=== PATIENT | female | born 1980 | race Caucasian/White ===

== ENCOUNTER 2016-12-06 14:16 | Inpatient (IN) | payer OTHER ==
--- NOTE | ~2016-12-06 | CT4 ---
[facility] A Service of [facility] RADIOLOGY TEXT RESULTS PATIENT: TARIQ EPPS LOCATION: [facility] : [birth year] UNIT #: [id number] AGE: [address]: Collette De Jesus MD SEX: F ORDER DR: [id number] [facility]. [place], [place] [address] [id number] I MR#: [id number] Acc #: [id number] NAME: TARIQ EPPS : 1980 SEX: F STUDY DATE/TIME: 12/06/2016 19:54 UNIT: A PCU ROOM: [facility] STUDY DESCRIPTION: CT Abd and Pelv Wo Cont Attending Physician: Collette De Jesus M.D. Ordering Physician: Essence Brandt M.D. [facility] REPORT This report is preliminary unless electronic signature is present EXAM CT abdomen and pelvis. INDICATIONS Generalized abdominal pain. Nausea, vomiting and diarrhea for [address] of the abdomen and pelvis without contrast. Coronal and sagittal reconstructions were obtained. This CT exam was performed with one or more of the following radiation dose reduction techniques: automatic exposure control, adjustment of mA and/or kV according to patient size, and iterative reconstruction. COMPARISON CT abdomen and pelvis dated 11/18/2014. FINDINGS Abdomen: The solid abdominal organs are grossly normal on this noncontrasted study. The gallbladder is surgically absent. The bowel is not dilated. The abdominal aorta is normal in caliber. The appendix is normal. Uterus and ovaries are within normal limits. Bladder is decompressed. No enlarged pelvic or inguinal lymph nodes. No acute osseous abnormalities. Patient has had prior fusion of the lower lumbar spine. Prior L4-S1 TLIF. IMPRESSION 1. No acute findings in the abdomen or pelvis. No urinary calculi. Normal appendix. Dictated by... [facility] A Service of [facility] RADIOLOGY TEXT RESULTS PATIENT: TARIQ EPPS LOCATION: [facility] : 80 UNIT #: [id number] AGE: [address]: Collette De Jesus MD SEX: F ORDER DR: Eric Humphrey M.D. THIS IS AN ELECTRONICALLY VERIFIED REPORT Eric Humphrey M.D. at 12/07/2016 10:55 AM ALEAXNDER/shashi TD: 12/07/2016 10:13 JOB #: [id number] MEDICAL IMAGING REPORT Page 1 of 1 COPY
--- NOTE | ~2016-12-06 | US77 ---
[facility] A Service of [facility] RADIOLOGY TEXT RESULTS PATIENT: TARIQ EPPS LOCATION: [facility] 341-01 : [birth year] UNIT #: [id number] AGE: [address]: Collette De Jesus MD SEX: F ORDER DR: [id number] [facility]. [place], [place] [address] [id number] I MR#: [id number] Acc #: [id number] NAME: TARIQ EPPS : 1980 SEX: F STUDY DATE/TIME: 12/06/2016 21:24 UNIT: [address] ROOM: [facility] STUDY DESCRIPTION: US Kidney Bilateral Complete Attending Physician: Collette De Jesus M.D. Ordering Physician: Nate Neri M.D. Primary Care Physician: [facility] MEDICAL IMAGING REPORT This report is preliminary unless electronic signature is present EXAM Renal ultrasound INDICATION Acute renal failure for 1 day. GFR 10.4. COMPARISON CT abdomen and pelvis dated 12/06/2016. FINDINGS The right kidney measures 13 cm. The left kidney measures 11.5 cm. Renal cortical thickness and echogenicity is normal. No hydronephrosis. The bladder is normal in appearance. IMPRESSION Negative renal ultrasound. Dictated by... Eric Humphrey M.D. THIS IS AN ELECTRONICALLY VERIFIED REPORT Eric Humphrey M.D. at 12/07/2016 4:55 PM ALEXANDER/yuriy TD: 12/07/2016 11:09 JOB #: [id number] MEDICAL IMAGING REPORT Page 1 of 1 COPY
--- NOTE | ~2016-12-06 | HP ---
Unit #: [id number] #: [id number] Patient: TARIQ EPPS [id number] [address] [address] [id number] I MR#: [id number] NAME: TARIQ EPPS ROOM: [address] Age: 35 Sex: F Admission Date: 12/06/2016 : 1980 Attending Physician: Essence Brandt M.D. Primary Care Physician: [facility]. HISTORY AND PHYSICAL CHIEF COMPLAINT Vomiting and diarrhea. HISTORY OF PRESENT ILLNESS The patient is a 35-year-old female with a past medical history of chronic back pain and recurrent urinary tract infections who presented to the emergency department for evaluation of the above. The patient states that she has had vomiting and diarrhea for the past four days. She reports more than 10 bouts of nonbloody emesis and more than 10 bouts of nonbloody diarrhea within the past 24 hours. She states that she has had abdominal pain she describes as "cramping." She denies any exacerbating or alleviating factors and no similar pain. She states that her last void was December 03, 2016. She denies any NSAID use. She denies ever being told that she has kidney problems. In the emergency department, initial pulse and blood pressure were 118 and 120/93, respectively. BUN and creatinine were 65 and 5, respectively, potassium 3.5, and sodium 126. She was given two liters of normal saline, as well as 4 mg of Zofran and 4 mg of morphine. She is being admitted to [facility] for evaluation and further treatment. PAST MEDICAL HISTORY 1. Admission to [facility] September 29-2013, for rectus hematoma following laparoscopic cholecystectomy. 2. Chronic pain followed by Dr. Fisher, maintained on narcotics. 3. History of recurrent urinary tract infection. 4. Admission to [facility] in 2016 for vomiting and diarrhea. PAST SURGICAL HISTORY 1. Back surgery. 2. Cholecystectomy. 3. EGD and colonoscopy. SOCIAL HISTORY The patient lives with her . She smokes a pack of cigarettes daily. She denies alcohol or illicit drug use. She is currently applying for disability. FAMILY HISTORY Notable for her mother drowning. Her dad has hypertension. ALLERGIES Penicillin and latex. Unit #: [id number] #: [id number] Patient: TARIQ EPPS HOME MEDICATIONS 1. Gabapentin 400 mg 4 times daily. 2. Oxycodone and acetaminophen 10/325 q.6 hours. REVIEW OF SYSTEMS A complete review of systems is negative except as indicated in the History of Present Illness. PHYSICAL EXAMINATION VITAL SIGNS: Temperature is 98, pulse 118, respirations 16, blood pressure 120/93, and oxygen saturation is 99% on room air. GENERAL: Patient is a female who is awake, alert, and in no acute distress. HEENT: Head is atraumatic. Mucous membranes are dry. NECK: Supple. Trachea is midline. CARDIOVASCULAR: Regular rate and rhythm. LUNGS: Clear to auscultation bilaterally with no increased work of breathing. ABDOMEN: Soft and nontender with bowel sounds present in all four quadrants. EXTREMITIES: Nontender with no pedal edema. NEUROLOGIC: Patient is awake and alert. She follows commands. PSYCHIATRIC: Mood and affect are normal. Patient is cooperative. SKIN: Skin of examined areas is warm and dry. DIAGNOSTIC STUDIES LABORATORY: Comprehensive metabolic panel notable for sodium of 126, chloride 84, glucose 127, BUN and creatinine 65 and 5, respectively, AST and ALT 124 and 98, respectively, alkaline phosphatase 139, total protein 10.5, and albumin is 5.8. Lipase 24. Complete blood count notable for white blood cell count of 27.3 and hemoglobin 18.2. ASSESSMENT The patient is a 35-year-old female with: 1. Acute kidney injury. The patient's creatinine was 0.6 on November 18, 2014. It is 5 today. The patient appears to be hypovolemic. She states that she has not had urine output since the . 2. Hyponatremia. Again, the patient seems to be hypovolemic. Her sodium is 126. It was previously 138. 3. Transaminitis. Liver function tests have previously been normal. 4. Leukocytosis. The patient has had diarrhea. She also has a history of recurrent urinary tract infections. Urinalysis is currently pending. 5. Chronic back pain followed by Dr. Fisher of Pain Management, maintained on narcotics. 6. History of recurrent urinary tract infections. 7. Tobacco abuse. PLAN 1. Admit to intermediate level. 2. Advance to clear liquids as tolerated. 3. Normal saline at 125 mL/hour. 4. Urinalysis with culture and sensitivity. 5. Strict I/Os. 6. Urine sodium, creatinine, and eosinophils. 7. Urine and serum osmolality. 8. CT of the abdomen and pelvis without contrast regarding abdominal Unit #: [id number] #: [id number] Patient: TARIQ EPPS pain. 9. Urine toxicology screen. 10. Check CPK. 11. Blood cultures x2. 12. Levaquin and Flagyl pending further workup. 13. Stool studies including ova and parasites, C. difficile, culture and sensitivity. 14. P.r.n. morphine. 15. P.r.n. Zofran. 16. SCDs for DVT prophylaxis. 17. Repeat labs in the morning. 18. Additional workup and consultants based on above. 1. Dictated by Farida Morales/lion TD: 12/06/2016 20:22 JOB #: [id number] HISTORY AND PHYSICAL Page 1 of 1 X Essence Brandt MD X HISTORY AND PHYSICAL
--- NOTE | ~2016-12-06 | HP ---
Unit #: [id number] #: [id number] Patient: TARIQ EPPS [id number] [address] [address] [id number] I MR#: [id number] NAME: TARIQ EPPS ROOM: 83616 Age: 35 Sex: F Admission Date: 12/06/2016 : 1980 Attending Physician: Essence Brandt M.D. Primary Care Physician: [facility]. HISTORY AND PHYSICAL CHIEF COMPLAINT Vomiting and diarrhea. HISTORY OF PRESENT ILLNESS The patient is a 35-year-old female with a past medical history of chronic back pain and recurrent urinary tract infections who presented to the emergency department for evaluation of the above. The patient states that she has had vomiting and diarrhea for the past four days. She reports more than 10 bouts of nonbloody emesis and more than 10 bouts of nonbloody diarrhea within the past 24 hours. She states that she has had abdominal pain she describes as "cramping." She denies any exacerbating or alleviating factors and no similar pain. She states that her last void was December 03, 2016. She denies any NSAID use. She denies ever being told that she has kidney problems. In the emergency department, initial pulse and blood pressure were 118 and 120/93, respectively. BUN and creatinine were 65 and 5, respectively, potassium 3.5, and sodium 126. She was given two liters of normal saline, as well as 4 mg of Zofran and 4 mg of morphine. She is being admitted to [facility] for evaluation and further treatment. PAST MEDICAL HISTORY 1. Admission to [facility] September 29-2013, for rectus hematoma following laparoscopic cholecystectomy. 2. Chronic pain followed by Dr. Fisher, maintained on narcotics. 3. History of recurrent urinary tract infection. 4. Admission to [facility] in 2016 for vomiting and diarrhea. PAST SURGICAL HISTORY 1. Back surgery. 2. Cholecystectomy. 3. EGD and colonoscopy. SOCIAL HISTORY The patient lives with her . She smokes a pack of cigarettes daily. She denies alcohol or illicit drug use. She is currently applying for disability. FAMILY HISTORY Notable for her mother drowning. Her dad has hypertension. ALLERGIES Penicillin and latex. Unit #: [id number] #: [id number] Patient: TARIQ EPPS HOME MEDICATIONS 1. Gabapentin 400 mg 4 times daily. 2. Oxycodone and acetaminophen 10/325 q.6 hours. REVIEW OF SYSTEMS A complete review of systems is negative except as indicated in the History of Present Illness. PHYSICAL EXAMINATION VITAL SIGNS: Temperature is 98, pulse 118, respirations 16, blood pressure 120/93, and oxygen saturation is 99% on room air. GENERAL: Patient is a female who is awake, alert, and in no acute distress. HEENT: Head is atraumatic. Mucous membranes are dry. NECK: Supple. Trachea is midline. CARDIOVASCULAR: Regular rate and rhythm. LUNGS: Clear to auscultation bilaterally with no increased work of breathing. ABDOMEN: Soft and nontender with bowel sounds present in all four quadrants. EXTREMITIES: Nontender with no pedal edema. NEUROLOGIC: Patient is awake and alert. She follows commands. PSYCHIATRIC: Mood and affect are normal. Patient is cooperative. SKIN: Skin of examined areas is warm and dry. DIAGNOSTIC STUDIES LABORATORY: Comprehensive metabolic panel notable for sodium of 126, chloride 84, glucose 127, BUN and creatinine 65 and 5, respectively, AST and ALT 124 and 98, respectively, alkaline phosphatase 139, total protein 10.5, and albumin is 5.8. Lipase 24. Complete blood count notable for white blood cell count of 27.3 and hemoglobin 18.2. ASSESSMENT The patient is a 35-year-old female with: 1. Acute kidney injury. The patient's creatinine was 0.6 on November 18, 2014. It is 5 today. The patient appears to be hypovolemic. She states that she has not had urine output since the . 2. Hyponatremia. Again, the patient seems to be hypovolemic. Her sodium is 126. It was previously 138. 3. Transaminitis. Liver function tests have previously been normal. 4. Leukocytosis. The patient has had diarrhea. She also has a history of recurrent urinary tract infections. Urinalysis is currently pending. 5. Chronic back pain followed by Dr. Fisher of Pain Management, maintained on narcotics. 6. History of recurrent urinary tract infections. 7. Tobacco abuse. PLAN 1. Admit to intermediate level. 2. Advance to clear liquids as tolerated. 3. Normal saline at 125 mL/hour. 4. Urinalysis with culture and sensitivity. 5. Strict I/Os. 6. Urine sodium, creatinine, and eosinophils. 7. Urine and serum osmolality. 8. CT of the abdomen and pelvis without contrast regarding abdominal pain. 9. Urine toxicology screen. Unit #: [id number] #: [id number] Patient: TARIQ EPPS 10. Check CPK. 11. Blood cultures x2. 12. Levaquin and Flagyl pending further workup. 13. Stool studies including ova and parasites, C. difficile, culture and sensitivity. 14. P.r.n. morphine. 15. P.r.n. Zofran. 16. SCDs for DVT prophylaxis. 17. Repeat labs in the morning. 18. Additional workup and consultants based on above. Dictated by... Essence Brandt M.D. AW/am TD: 12/06/2016 20:22 JOB #: [id number] ADDENDUM PLAN (CONTINUED) 19. Consult Dr. Wise regarding acute kidney injury and hyponatremia. 20. Hold gabapentin. 1. Dictated by Essence Brandt M.D. AW/am TD: 12/06/2016 20:50 JOB #: [id number] CC: Pawel/abdiel Please Delete HISTORY AND PHYSICAL Page 1 of 1 X Essence Brandt MD HISTORY AND PHYSICAL
--- NOTE | ~2016-12-06 | DS ---
Unit #: [id number] #: [id number] Patient: TARIQ MCGOVERN [id number] [address] [address] [id number] I MR#: [id number] NAME: TARIQ MCGOVERN ROOM: 341 Age: 35 Sex: F Admission Date: 12/06/2016 : 1980 Discharge Date: 12/08/2016 Attending Physician: Collette De Jesus M.D. Primary Care Physician: [facility]. DISCHARGE SUMMARY PRINCIPAL DIAGNOSES 1. Sepsis secondary to Gram-negative belkys urinary tract infection. 2. Acute kidney injury, prerenal. Discharge creatinine 0.9. 3. Mild transaminitis, now resolved. 4. Tobaccoism. 5. Chronic pain syndrome. 6. Hypokalemia, resolved. 7. Hypovolemic hyponatremia. CONSULTANTS Dr. Caldwell, nephrology. PROCEDURES 1. CT scan of the abdomen and pelvis without contrast, on 12/06/2016, with no acute findings. 2. Bilateral renal ultrasound on 12/06/2016 was also normal. CLINICAL HISTORY AND HOSPITAL COURSE Ms. Mcgovern is a 35-year-old female with a history of recurrent UTIs who presents to the emergency department vomiting and diarrhea. CT scan was done in the emergency department and was unremarkable. However, lab work in the emergency department revealed a creatinine of 5, some hyponatremia and some hypokalemia. The patient was given IV fluids and subsequently admitted. In regard to patient's acute kidney injury, Dr. Caldwell was consulted. She was maintained on IV fluids and on day of discharge creatinine is normal. In regard to patient's electrolyte abnormalities, her hyponatremia resolved with fluid resuscitation. Her nausea and vomiting is likely either viral induced or plus or minus secondary to her urinary tract infection. This has resolved as well. In regard to patient's other electrolyte abnormalities, these have been replaced and are normal on day of discharge. The patient did undergo a urinalysis and was found to have a Gram-negative belkys urinary tract infection. Official culture results are currently pending but she has been maintained on Rocephin throughout hospitalization with no improvement in her white blood cell count. I will place her on Omnicef and follow up urine culture tomorrow to ensure appropriateness of antibiotic therapy. The patient is otherwise clinically stable and will be discharged home Unit #: [id number] #: [id number] Patient: TARIQ MCGOVERN today. DISCHARGE CONDITION Stable. DISCHARGE STATUS Discharge to home. DISCHARGE MEDICATIONS 1. Omnicef 300 mg p.o. b.i.d. for another 2 days. 2. Gabapentin 400 mg q.i.d. 3. Oxycodone 10/325 one tablet p.o. q.6 h. DISCHARGE INSTRUCTIONS 1. The patient was instructed to follow a regular diet. 2. She can increase her activity as tolerated. 3. We did briefly discuss tobacco cessation. FOLLOWUP The patient will follow up with her primary care provider at [facility] in three weeks. Dictated by... Collette De Jesus M.D. CAMRYN/satya TD: 12/09/2016 16:24 JOB #: [id number] DISCHARGE SUMMARY Page 1 of 1 X Collette De Jesus MD X DISCHARGE SUMMARY
[~2016-12-06 14:16] MED LIST: HYDROCODON-ACE1 EAC7 PO; HYDROCODON-ACE1 EAC9 PO; NAPROSYN500 MG PO; NO MEDICATIONS; PHENERGAN25 M1 PO
[2016-12-06 16:44] LABS: BASOPHIL% 0.1 % (0-2.5); EOSINOPHIL# 0.1 X10e3 (0-0.7); EOSINOPHIL% 0.3 % (0.0-7.0); HEMATOCRIT 53.3 % (35.0-45.0); HEMOGLOBIN 18.2 gm/dL (12.0-16.0); LYMPHOCYTE# 3.5 X10e3 (1.0-3.5); LYMPHOCYTE% 12.7 % (17.0-45.0); MEAN CELL VOLUME 92.5 FL (83-96); MEAN CORPUSCULAR HEMOGLOBIN 31.5 PG (28-34); MEAN CORPUSCULAR HGB CONC 34.1 g/dL (30-36); MEAN PLATELET VOLUME 8.6 FL (6.5-11.5); MONOCYTE# 1.9 X10e3 (0-1.0); MONOCYTE% 6.8 % (3.0-12.0); NEUTROPHIL# 21.9 X10e3 (1.5-7.1); NEUTROPHIL% 80.1 % (40-75); PLATELET COUNT 337 X10e3 (140-420); RED BLOOD COUNT 5.76 X10e (3.90-5.30); RED CELL DISTRIBUTION WIDTH 13.3 % (11.0-15.5); WHITE BLOOD COUNT 27.3 X10e3 (4.0-10.5)
[2016-12-06 16:50] LABS: DIFF IND YES
[2016-12-06 17:07] LABS: ALBUMIN SERUM 5.8 g/dL (3.5-5.0); BILIRUBIN, DIRECT 0.4 mg/dL (0.0-0.2); BILIRUBIN,INDIRECT 0.7 mg/dL (0.0-0.9); BILIRUBIN,TOTAL 1.1 mg/dL (0.2-2.0); CALCIUM SERUM 9.1 mg/dL (8.4-10.2); GLOM FILT RATE Estimated 10.4 mL/min (>60); POTASSIUM 3.5 mmol/L (3.5-5.1); PROTEIN TOTAL SERUM 10.5 g/dL (6.0-8.3)
[2016-12-06 17:29] LABS: PLATELET ESTIMATE NORMAL (NORMAL); RBC NORMAL YES
[2016-12-06] MEDS ORDERED: OXYCODONE-ACET1 EAC1 PO (18:53)
[2016-12-06] MEDS ORDERED: GABAPENTIN400 M2 PO (18:53)
[2016-12-06 19:23] LABS: URINE SOURCE CLEAN CATCH
[2016-12-06 19:31] LABS: URINE APPEARANCE TURBID; URINE BLOOD 3+ (NEG); URINE COLOR DK YELLOW; URINE GLUCOSE 100 MG/DL (NEG); URINE KETONE TRACE (NEG); URINE LEUKOCYTE ESTERASE 2+ (NEG); URINE NITRATE NEG (NEG); URINE PROTEIN 3+ (NEG); URINE SPECIFIC GRAVITY 1.023 (1.003-1.035)
[2016-12-06 19:33] LABS: CULTURE INDICATED? YES; URINE SQUAMOUS EPITHELIAL CELL FEW /[HPF]; UWBCS1 AUWI 100-200 (0-5)
[2016-12-06 19:42] LABS: URINE BILIRUBIN NEG (NEG)
[2016-12-06 19:51] LABS: URINE BACTERIA AUWI 2+ (NEGATIVE)
[2016-12-06 19:52] LABS: U HYALINE CASTS AUWI 0-2 /[LPF]
[2016-12-06 20:37] LABS: CPK (CREATINE PHOSPHOKINASE) 349 IU/L (26-140)
[2016-12-06 22:03] LABS: CREATININE,RANDOM URINE 153 mg/dL; SODIUM URINE RANDOM 30 mmol/L
[2016-12-06 22:06] LABS: AMPHETAMINE NEG (NEG); BARBITURATES NEG (NEG); BENZODIAZEPINES NEG (NEG); COCAINE NEG (NEG); MARIJUANA NEG (NEG); OPIATES POS (NEG); TRICYCLIC ANTIDEPRESSANTS NEG (NEG); U METHADONE NEG (NEG)
[2016-12-06 23:00] LABS: OSMOLALITY,SERUM 295 mOsmo/kg (280-300)
[2016-12-07 08:00] LABS: HEMATOCRIT 41.2 % (35.0-45.0); MEAN CELL VOLUME 93.8 FL (83-96); MEAN CORPUSCULAR HEMOGLOBIN 30.8 PG (28-34); MEAN CORPUSCULAR HGB CONC 32.8 g/dL (30-36); MEAN PLATELET VOLUME 8.9 FL (6.5-11.5); RED BLOOD COUNT 4.4 X10e (3.90-5.30); WHITE BLOOD COUNT 18.9 X10e3 (4.0-10.5)
[2016-12-07 08:24] LABS: ALBUMIN SERUM 3.9 g/dL (3.5-5.0); CALCIUM SERUM 8.3 mg/dL (8.4-10.2); GLOM FILT RATE Estimated 31.5 mL/min (>60); PHOSPHOROUS 2.7 mg/dL (2.5-4.6); POTASSIUM 3.5 mmol/L (3.5-5.1); PROTEIN TOTAL SERUM 7.3 g/dL (6.0-8.3)
[2016-12-07 09:10] LABS: HEMOGLOBIN 13.5 gm/dL (12.0-16.0)
[2016-12-07 14:19] LABS: CREATININE,RANDOM URINE 91 mg/dL; TOTAL PROTEIN,RANDOM URINE 13 mg/dl (<10)
[2016-12-08 05:55] LABS: HEMATOCRIT 37.1 % (35.0-45.0); HEMOGLOBIN 12.1 gm/dL (12.0-16.0); MEAN CELL VOLUME 95.8 FL (83-96); MEAN CORPUSCULAR HEMOGLOBIN 31.2 PG (28-34); MEAN CORPUSCULAR HGB CONC 32.6 g/dL (30-36); MEAN PLATELET VOLUME 8.8 FL (6.5-11.5); RED BLOOD COUNT 3.87 X10e (3.90-5.30); WHITE BLOOD COUNT 13.8 X10e3 (4.0-10.5)
[2016-12-08 06:39] LABS: BUN/CREATININE RATIO 17.77; CALCIUM SERUM 7.9 mg/dL (8.4-10.2); CREATININE SERUM 0.9 mg/dL (0.6-1.4); GLOM FILT RATE Estimated 82.9 mL/min (>60)
[2016-12-08 06:41] LABS: POTASSIUM 2.9 mmol/L (3.5-5.1)
[2016-12-08] MEDS ORDERED: OMNICEF300 M1 PO (12:08)
== END 2016-12-08 12:49 | disposition home or self-care (01) | DRG 872 ==
LOC: CED 14:16 → CEDOF 19:10 → CED 19:26 → C3A PCU 21:54 → CEDOF 21:54 → C3A PCU 21:54
PROVIDERS: Emergency Medicine; Family Medicine; Internal Medicine
DX: A41.9 Sepsis, unspecified organism (principal); N17.9 Acute kidney failure, unspecified; E87.1 Hypo-osmolality and hyponatremia; N39.0 Urinary tract infection, site not specified; R19.7 Diarrhea, unspecified; Z90.49 Acquired absence of other specified parts of digestive tract; F17.210 Nicotine dependence, cigarettes, uncomplicated; R74.0 Nonspecific elevation of levels of transaminase and lactic acid dehydrogenase [LDH]; D72.829 Elevated white blood cell count, unspecified; M54.9 Dorsalgia, unspecified; G89.4 Chronic pain syndrome; E87.6 Hypokalemia
CPT/HCPCS: 36415; 74176; 76770; 80048; 80053; 80076; 80307; 81003; 82550; 82570; 83690; 83735; 83930; 83935; 84100; 84156; 84300; 84703; 85025; 85027; 87040; 87086; 87088; 87186; 89190; 99285; J0696; J1956; J2270; J2405